=== PATIENT | male | born 1960 | race Caucasian/White ===

== ENCOUNTER 2016-12-19 01:42 | Emergency (ER) | payer OTHER ==
[~2016-12-19] VITALS: Ht 185.4 cm; Wt 94.8 kg
[~2016-12-19 01:42] MED LIST: IRBE-43 PO; SIMV40TA2 PO
[2016-12-19 01:50] VITALS: TEMP 37.7; Ht 185.4 cm; Wt 94.8 kg
[2016-12-19] MEDS ORDERED: SODIUM CHLORIDE 0.9% 1000ML 1,000 ML IV STA (02:58)
[2016-12-19] MEDS ORDERED: KETOROLAC TROMETHAMINE 30 MG/ML VIAL IV STA (02:58)
[2016-12-19] MEDS ORDERED: ACETAMINOPHEN 500 MG TAB PO STA (02:58)
[2016-12-19 03:04] LABS: BASO % 0.1 %; BASO ABS # 0.01 K/uL (0-0.2); COMPLETE YES; EOS % 0.5 %; HEMATOCRIT 40.8 % (42-52); IG% 0.4 %; LYMPH % 8.5 %; LYMPH ABS # 0.64 K/uL (1.2-3.4); MEAN CELL VOLUME 83.1 fL (80-100); MEAN CORPUSCULAR HEMOGLOBIN 29.5 pg (25-34); MEAN CORPUSCULAR HGB CONC 35.5 g/dl (32-36); MEAN PLATELET VOLUME 9.1 fL (7.4-10.4); MONO % 2.4 %; NEUT % 88.1 %; PLATELET COUNT 177 K/uL (130-400); RED BLOOD COUNT 4.91 M/uL (4.7-6.1); WHITE BLOOD COUNT 7.54 K/uL (4.8-10.8)
[2016-12-19 03:14] LABS: BUN/CREATININE RATIO 13.4 (10-20); CALCIUM 9.1 mg/dl (8.5-10.1); CREATININE 1.1 mg/dl (0.60-1.40); MAGNESIUM 1.7 mg/dl (1.8-2.4); POTASSIUM 3.6 mmol/L (3.5-5.1)
[2016-12-19 03:18] LABS: URINE APPEARANCE CLEAR (CLEAR); URINE BILIRUBIN NEG (NEG); URINE COLOR YELLOW; URINE NITRITE NEG (NEG); URINE PH 5.5 (4.5-7.5); URINE SPECIFIC GRAVITY 1.012 (1.000-1.030); UROBILINOGEN NEG (NEG); ZZUR CULT IF INDIC CLEAN CATCH NO
[2016-12-19 03:22] LABS: MANUAL MICROSCOPIC REQUIRED? NO; REVIEW REQ? NO
[2016-12-19] MEDS ORDERED: ALBUTEROL HFA 8 GM INHALER INH STA (05:51)
[2016-12-19] MEDS ORDERED: ZTHM250 PO (05:57)
--- NOTE | 2016-12-19 05:58 | EMERGENCY ROOM VISIT NOTE ---
History First contact with patient: 02:31 Chief Complaint: FEVER Stated Complaint: FEVER History of Present Illness The patient is a 56 year old male who presents to the Emergency Department by private vehicle for evaluation of his fever, upper respiration 20 symptoms, and cough. He reports that he has not felt well for the past month or so. This evening, he developed a fever of 102.7 at home. He reports having some mild nausea. He reports a mild headache. This is not the worst headache of his life. He reports diffuse muscle aches and pains. He has had a lingering cough the past 2 weeks. The patient rates his current discomfort as a 4/10. He is tried nothing [id number] for his symptoms. He did receive his flu shot this year. He denies any blurry vision, double vision, slurred speech, facial droop, unilateral weakness/numbness, chest pain, palpitations, shortness of breath, hemoptysis, vomiting, abdominal pain, hematochezia, melena, hematuria, or dysuria. Review of Systems A complete 10-point Review of Systems was discussed with the patient, with pertinent positives and negatives listed in the History of Present Illness. All remaining Review of Systems questions can be considered negative unless otherwise specified. Social History Smoking Status: Never Smoker Smokeless Tobacco Use: No Housing Status: lives with family Occupation Status: employed Current/Historical Medications Scheduled Aspirin (Aspirin Ec), 81 MG PO DAILY Azithromycin (Azithromycin), 1 TAB PO DAILY Fish Oil ([place]-3), 1 CAP PO DAILY Irbesartan-Hydrochlorothiazide (Avalide), 150 MG PO DAILY Multivitamin (Multivitamin), 1 TAB PO DAILY Simvastatin (Zocor), 40 MG PO QPM Allergies Coded Allergies: No Known Allergies (Unverified , 12/19/16) Physical Exam Vital Signs Date Time Temp Pulse Resp B/P Pulse Ox O2 Delivery O2 Flow Rate FiO2 12/19/16 06:19 78 16 127/77 98 12/19/16 05:32 75 16 127/71 97 Room Air 12/19/16 03:47 77 16 136/74 98 Room Air 12/19/16 01:50 37.7 121 18 133/76 92 Room Air Pain Rating (0-10): 4 Physical Exam VITAL SIGNS - Vital signs and nursing notes were reviewed. GENERAL - Well nourished, well developed 56-year-old male in no acute distress. Pt communicates well with provider and answers questions appropriately. SKIN - Without rash. HEAD - NC/AT with no obvious deformities. EYES - PERRL with EOMI bilaterally. Sclera without injection. Palpebral conjunctiva pink and moist. EARS - No deformities of external structures noted on gross examination bilaterally. No pain elicited with palpation of the tragus bilaterally. External auditory canals without discharge or otorrhea. Tympanic membranes pearly osborne without retraction or bulging. No fluid or purulent material visualized behind the TM. Handle of malleus, umbo, cone of light, pars tensa/ flaccid all easily visualized. NOSE - Midline and without cyanosis. No purulent drainage noted. Nasal mucosa without mucus discharge. MOUTH/OROPHARYNX - Without perioral cyanosis. Buccal mucosa pink and moist and without leukoplakia. Tongue midline with equal elevation of palate bilaterally. No tonsillar hypertrophy, erythema, or exudates noted. Good dentition noted. NECK - Neck with FROM. Supple to palpation. No lymphadenopathy noted. No nuchal rigidity. LUNGS - Chest wall symmetric without accessory muscle use, intercostals retractions, or central cyanosis. Normal vesicular breath sounds CTA B/L. No wheezes, rales, or rhonchi appreciated. CARDIAC - RRR with S1/S2. No murmur, rubs, or gallops appreciated. ABDOMEN - Abdominal contour flat without pulsations or visible masses. BS normoactive all four quadrants. No tenderness, palpable masses, hepatosplenomegaly, or ascites noted. Medical Decision & Procedures ER Provider Diagnostic Interpretation: Radiological imaging and reports were reviewed by myself. Radiologist's Interpretation as follows: CHEST ONE VIEW PORTABLE CLINICAL HISTORY: cough/fever COMPARISON STUDY: No previous studies for comparison. FINDINGS: The cardiac and mediastinal contours are normal. There is no evidence of focal pulmonary consolidation. There is no evidence of failure. No pleural effusions are visualized.[ Bibasilar opacities are felt to be atelectatic. IMPRESSION: Bibasilar opacities, likely atelectatic. No evidence of lobar consolidation Laboratory Results 12/19/16 02:05 Red Blood Count 4.91, Mean Corpuscular Volume 83.1, Mean Corpuscular Hemoglobin 29.5, Mean Corpuscular Hemoglobin Concent 35.5, Mean Platelet Volume 9.1, Neutrophils (%) (Auto) 88.1, Lymphocytes (%) (Auto) 8.5, Monocytes (%) (Auto) 2.4, Eosinophils (%) (Auto) 0.5, Basophils (%) (Auto) 0.1, Neutrophils # (Auto) 6.64, Lymphocytes # (Auto) 0.64, Monocytes # (Auto) 0.18, Eosinophils # (Auto) 0.04, Basophils # (Auto) 0.01 12/19/16 02:05 Test 12/19/16 02:05 12/19/16 03:00 12/19/16 03:40 White Blood Count 7.54 K/uL (4.8-10.8) Red Blood Count 4.91 M/uL (4.7-6.1) Hemoglobin 14.5 g/dL (14.0-18.0) Hematocrit 40.8 % (42-52) Mean Corpuscular Volume 83.1 fL (80-100) Mean Corpuscular Hemoglobin 29.5 pg (25-34) Mean Corpuscular Hemoglobin Concent 35.5 g/dl (32-36) Platelet Count 177 K/uL (130-400) Mean Platelet Volume 9.1 fL (7.4-10.4) Neutrophils (%) (Auto) 88.1 % Lymphocytes (%) (Auto) 8.5 % Monocytes (%) (Auto) 2.4 % Eosinophils (%) (Auto) 0.5 % Basophils (%) (Auto) 0.1 % Neutrophils # (Auto) 6.64 K/uL (1.4-6.5) Lymphocytes # (Auto) 0.64 K/uL (1.2-3.4) Monocytes # (Auto) 0.18 K/uL (0.11-0.59) Eosinophils # (Auto) 0.04 K/uL (0-0.5) Basophils # (Auto) 0.01 K/uL (0-0.2) RDW Standard Deviation 37.2 fL (36.4-46.3) RDW Coefficient of Variation 12.4 % (11.5-14.5) Immature Granulocyte % (Auto) 0.4 % Immature Granulocyte # (Auto) 0.03 K/uL (0.00-0.02) Anion Gap 10.0 mmol/L (3-11) Est Creatinine Clear Calc Drug Dose 84.7 ml/min Estimated GFR () 86.5 Estimated GFR (Non- 74.6 BUN/Creatinine Ratio 13.4 (10-20) Calcium Level 9.1 mg/dl (8.5-10.1) Magnesium Level 1.7 mg/dl (1.8-2.4) Total Bilirubin 0.7 mg/dl (0.2-1) Aspartate Amino Transf (AST/SGOT) 22 U/L (15-37) Alanine Aminotransferase (ALT/SGPT) 50 U/L (12-78) Alkaline Phosphatase 124 U/L (45-117) Total Protein 7.3 gm/dl (6.4-8.2) Albumin 3.7 gm/dl (3.4-5.0) Globulin 3.6 gm/dl (2.5-4.0) Albumin/Globulin Ratio 1.0 (0.9-2) Lipase 182 U/L (73-393) Urine Color YELLOW Urine Appearance CLEAR (CLEAR) Urine pH 5.5 (4.5-7.5) Urine Specific [place] 1.012 (1.000-1.030) Urine Protein NEG (NEG) Urine Glucose (UA) NEG (NEG) Urine Ketones NEG (NEG) Urine Occult Blood NEG (NEG) Urine Nitrite NEG (NEG) Urine Bilirubin NEG (NEG) Urine Urobilinogen NEG (NEG) Urine Leukocyte Esterase NEG (NEG) Influenza Type A Antigen Neg for Influ A (NEG) Influenza Type B Antigen Neg for Influ B (NEG) Medications Administered Medications (Trade) Dose Ordered Sig/Lynne Route Start Time Stop Time Status Last Admin Dose Admin Sodium Chloride (Nss 1000ml) 1,000 ml @ 999 mls/hr Q1H1M STAT IV 12/19/16 02:58 12/19/16 03:58 DC 12/19/16 03:37 999 MLS/HR Acetaminophen (Tylenol Tab) 1,000 mg NOW STAT PO 12/19/16 02:58 12/19/16 03:00 DC 12/19/16 03:37 1,000 MG Ketorolac Tromethamine (Toradol Inj) 30 mg NOW STAT IV 12/19/16 02:58 12/19/16 03:00 DC 12/19/16 03:38 30 MG Azithromycin (Zithromax Tab) 500 mg NOW ONCE PO 12/19/16 06:00 12/19/16 06:01 DC 12/19/16 06:10 500 MG Albuterol (Ventolin Hfa Inhaler) 2 puffs ONE STAT INH 12/19/16 05:51 12/19/16 05:53 DC 12/19/16 06:11 2 PUFFS ED Course Patient was seen and evaluated by myself. Labs were drawn, saline lock complains. The patient was hydrated with a 1000 mL normal saline bolus. He was treated with 1 g of Tylenol orally for fever. He received 30 mg Toradol intravenously for pain and fevers well. Chest x-ray was obtained. Influenza swab was obtained. Laboratory results demonstrate no acute leukocytosis, worrisome anemia, or bandemia. The patient has no significant electrolyte abnormalities. Influenza was negative. Chest x-ray demonstrates no significant findings. Patient was reevaluated and reports feeling much better at this time. The patient was educated on laboratory studies and imaging findings. The patient was started on azithromycin for his ongoing symptoms. He was provided an albuterol inhaler for home. The patient was encouraged to follow-up with his primary care provider from today's visit. He was educated on worrisome symptoms for return visit to the emergency department. Patient discharged home afebrile and in good condition. Medical Decision Given the patient's presentation and stated complaints, I did elect to perform the above-mentioned workup. The patient presents today with fever, bodyaches, and cough. His symptoms have been ongoing for the last 48 hours. His cough has been persistent for the last few weeks. His chest x-ray demonstrate no acute insult otherwise. He has no chest pain. Clinically, the patient appears well. He responded well to IV fluids and antipyretics. Clinically, the patient appears very well at this time. Patient has had a cough for the last few weeks and now has associated fever. Because of this, the patient was placed on azithromycin. He was provided an albuterol inhaler for home. He was encouraged to utilize [id number] medications for ongoing symptoms. He was educated on worrisome symptoms for return visit to the emergency department. Patient discharged home afebrile and in good condition. In the evaluation and treatment of this patient, the following differential diagnoses were considered: Influenza, pneumonia, PE, meningitis, encephalitis, strep, mono, ACS, amongst others. Impression Primary Impression: Flu-like symptoms Additional Impressions: Fever Cough Departure Information Dispostion Home / Self-Care Condition GOOD Prescriptions Azithromycin (Azithromycin) 250 Mg Tab 1 TAB PO DAILY for 4 Days, #4 TAB Prov: Osvaldo Aguilar PA-C 12/19/16 Referrals Madeleine Connelly C.R.N.P (PCP) Patient Instructions My [facility] Additional Instructions You have been seen in the emergency department today for your flulike symptoms, fever, and cough. You were prescribed Azithromycin to be taken as prescribed. This is an antibiotic. All antibiotics have the potential to cause diarrhea. Stop this medication and contact a medical provider if you were to develop any significant adverse side effects including: wheezing, shortness of breath, passing out, vomiting, or a diffuse rash. Always take antibiotics as directed and COMPLETE the ENTIRE course regardless of the improvement of your symptoms. Please use the albuterol inhaler 2 puffs every 4-6 hours for the next 3-4 days and then as needed for cough. For pain control, you can use the following [id number] medicines (if >12 yo): - Regular strength (325mg/tab) Tylenol (acetaminophen) 2 tabs every 4-6 hours as needed. Do not exceed 12 tablets in a 24 hour period. Avoid taking more than 4 grams (4000 mg) of Tylenol per day. This includes any other sources of acetaminophen you may take on a regular basis. - Regular strength (200 mg/tab) Advil (ibuprofen) 1-2 tabs every 4-6 hours as needed. Do not exceed a dose of 3200 mg per day. Return for any changing or worsening symptoms. Problem Qualifiers Additional Impressions: Fever Fever type: unspecified Qualified Codes: R50.9 - Fever, unspecified
[2016-12-19] MEDS ORDERED: AZITHROMYCIN 250 MG TAB PO ONE (06:00)
[2016-12-19 06:19] VITALS: BP 127/77; PULSE 78; O2SAT 98
--- NOTE | 2016-12-19 07:53 | DIAGNOSTIC IMAGING REPORT ---
CHEST ONE VIEW PORTABLE CLINICAL HISTORY: cough/fever COMPARISON STUDY: No previous studies for comparison. FINDINGS: The cardiac and mediastinal contours are normal. There is no evidence of focal pulmonary consolidation. There is no evidence of failure. No pleural effusions are visualized.[ Bibasilar opacities are felt to be atelectatic. IMPRESSION: Bibasilar opacities, likely atelectatic. No evidence of lobar consolidation Electronically signed by: Az Handy M.D. 12/19/2016 7:52 AM Dictated Date/Time: 12/19/2016 7:51 AM
[2017-03-15] MEDS ORDERED: OMEG10007 PO (10:07)
[2017-03-15] MEDS ORDERED: ASPI81TA28 PO (10:07)
[2017-03-15] MEDS ORDERED: MULT-506 PO (10:07)
== END 2016-12-19 06:20 | disposition home or self-care (01) ==
LOC: C.EDB 01:43
DX: R50.9 Fever, unspecified (principal); R05 Cough; Z79.82 Long term (current) use of aspirin; Z79.899 Other long term (current) drug therapy

== ENCOUNTER → 2017-03-11 | Outpatient (CLI) | payer OTHER ==
[~2017-03-11] MED LIST changes: +ACET-1256 PO; +ASPI-390 PO; +ASPI81TA28 PO; +ATOR-26 PO; +AZIT-57 PO; +DOXY100C PO; +FLUT0.15 NAE; +IRBE1TAB50 PO; +KETO10TA PO; +MULT-506 PO; +OMEG10007 PO; +OXYC1TAB3 PO
--- NOTE | 2017-03-11 12:16 | DIAGNOSTIC IMAGING REPORT ---
CHEST 2 VIEWS ROUTINE CLINICAL HISTORY: FEVER AND CHILLS COMPARISON STUDY: 12/19/2016 FINDINGS: The cardiac and mediastinal contours are normal. There is no evidence of focal pulmonary consolidation. There is no evidence of failure. No pleural effusions are visualized.[ IMPRESSION: No active disease in the chest. Electronically signed by: Az Handy M.D. 03/11/2017 12:14 PM Dictated Date/Time: 03/11/2017 12:14 PM
== END | disposition home or self-care (01) ==
LOC: C.LABPVFM 11:58
PROVIDERS: ATTEND Family Medicine
DX: R50.9 Fever, unspecified (principal)

== ENCOUNTER 2017-03-15 14:54 | Emergency (ER) | payer OTHER ==
[~2017-03-15] VITALS: Ht 180.3 cm; Wt 98.4 kg
[~2017-03-15 14:54] MED LIST changes: -ACET-1256 PO; -ASPI-390 PO; -ATOR-26 PO; -DOXY100C PO; -FLUT0.15 NAE; -IRBE1TAB50 PO; -KETO10TA PO; -OXYC1TAB3 PO
[2017-03-15 14:55] VITALS: TEMP 36.7; Ht 180.3 cm; Wt 98.4 kg
[2017-03-15] MEDS ORDERED: ONDANSETRON INJ 2 MG/ML 2 ML VIAL IV STA (15:19)
[2017-03-15] MEDS ORDERED: SODIUM CHLORIDE 0.9% 1000ML 1,000 ML IV STA ×2 (15:19→16:40)
[2017-03-15] MEDS ORDERED: KETOROLAC TROMETHAMINE 30 MG/ML VIAL IV STA (15:19)
[2017-03-15 15:25] LABS: BASO % 0.6 %; BASO ABS # 0.04 K/uL (0-0.2); COMPLETE YES; EOS % 0.8 %; HEMATOCRIT 40.3 % (42-52); IG% 0.1 %; LYMPH % 24.4 %; LYMPH ABS # 1.75 K/uL (1.2-3.4); MEAN CELL VOLUME 85.4 fL (80-100); MEAN CORPUSCULAR HEMOGLOBIN 29.9 pg (25-34); MEAN PLATELET VOLUME 8.8 fL (7.4-10.4); MONO % 9.9 %; NEUT % 64.2 %; PLATELET COUNT 190 K/uL (130-400); RED BLOOD COUNT 4.72 M/uL (4.7-6.1); WHITE BLOOD COUNT 7.18 K/uL (4.8-10.8)
--- NOTE | 2017-03-15 15:29 | DIAGNOSTIC IMAGING REPORT ---
CHEST ONE VIEW PORTABLE CLINICAL HISTORY: Chest pain and shortness of breath. COMPARISON STUDY: Chest radiograph March 11, 2017. FINDINGS: Lung volumes are normal. There is no pneumothorax or pleural effusion. No consolidation is identified. Pulmonary vascularity is normal. Cardiomediastinal silhouette is normal. IMPRESSION: No acute cardiopulmonary findings. Electronically signed by: Juan F Tong M.D. 03/15/2017 3:28 PM Dictated Date/Time: 03/15/2017 3:27 PM
[2017-03-15 15:42] LABS: BLOOD UREA NITROGEN 15 mg/dl (7-18); BUN/CREATININE RATIO 16.1 (10-20); CALCIUM 8.7 mg/dl (8.5-10.1); CARBON DIOXIDE 30 mmol/L (21-32); CHLORIDE 107 mmol/L (98-107); CREATININE 0.95 mg/dl (0.60-1.40); GLUCOSE 94 mg/dl (70-99); SODIUM 143 mmol/L (136-145)
[2017-03-15] MEDS ORDERED: IRBE1TAB50 PO (15:54)
[2017-03-15] MEDS ORDERED: ATOR-26 PO (15:54)
[2017-03-15] MEDS ORDERED: ACET-1256 PO (15:59)
[2017-03-15] MEDS ORDERED: KETO10TA PO (15:59)
[2017-03-15] MEDS ORDERED: FLUT0.15 NAE (16:05)
[2017-03-15] MEDS ORDERED: ASPI-390 PO (16:05)
[2017-03-15 16:27] LABS: LYME DISEASE AB IGG POS (NEG); LYME DISEASE AB IGM POS (NEG)
[2017-03-15] MEDS ORDERED: MoRPHine SULFATE 10 MG/ML CARP/VIAL IV STA (16:40)
[2017-03-15] MEDS ORDERED: OPTIRAY 320 IV PRN (16:45)
--- NOTE | 2017-03-15 17:19 | DIAGNOSTIC IMAGING REPORT ---
Study: CT angiography of the chest. HISTORY: Chest pain. Back pain. FINDINGS: Normal study. No evidence for aneurysm or dissection. Lungs are clear. IMPRESSION: Normal study Electronically signed by: Joseph Charles M.D. 03/15/2017 5:18 PM Dictated Date/Time: 03/15/2017 5:15 PM
[2017-03-15] MEDS ORDERED: DOXY100C PO (18:05)
[2017-03-15] MEDS ORDERED: OXYC1TAB3 PO (18:05)
[2017-03-15] MEDS ORDERED: DOXYCYCLINE HYCLATE 100 MG CAP PO ONE (18:15)
[2017-03-15 18:24] VITALS: BP 151/100; PULSE 50; O2SAT 96
--- NOTE | 2017-03-15 21:52 | EMERGENCY ROOM VISIT NOTE ---
History Report prepared by Zuleika: Bea Vines Under the Supervision of: Dr. Loi Gan D.O. First contact with patient: 15:03 Chief Complaint: CHEST PAIN Stated Complaint: SOB, PAIN IN R/S CHEST TO BACK History of Present Illness The patient is a 56 year old male who presents to the Emergency Room with complaints of worsening right chest pain starting 1 week ago. His symptoms started 1 week ago with a low grade fever, chills, headache, and chest pain. His symptoms worsened so 4 days ago he went to see his PCP who just told him to take Tylenol for his pain. The Tylenol did not help and his chest pain has worsened to the point where he cannot sleep at night. He has been sitting up to sleep. Yesterday he went to the ED and did a CT which found fluid in his right lung and around the heart. His pain is relieved by raising his arms above his head and [place]. His pain worsens with breathing. His symptoms continue to worsen and he now has SOB because when he takes a deep breath it hurts. The pain is in his right chest and wraps around his side and across his back. He denies any cough, rhinorrhea, sore throat, rash, swelling in the legs. He denies any history of smoking. He denies any trauma, recent surgery, long trips , or recent hospitalizations. He has not played golf recently. He denies any history of cancer, blood clots, or aortic problems. He had a tick bite 2 weeks ago. The tick was on for less than 36 hours and was engorged. He took doxycycline and there was no rash. He has a history of hypertension and high cholesterol. His records from [facility] show that he had a negative troponin. CT PE was suboptimal due to motion artifact. The aorta was normal and there was a small amount of fluid in the superior pericardial recess and trace right pleural effusion. Source of History: patient Onset: 1 week ago Position: chest (right) Quality: other (pain) Timing: worsening Modifying Factors (Worsening): breathing Modifying Factors (Relieving): other (raising arms above head, [place]) Associated Symptoms: + SOB, + chills, + headache, No cough, No rash, No sorethroat Note: Pt denies rhinorrhea, swelling in the legs. Review of Systems See HPI for pertinent positives & negatives. A total of 10 systems reviewed and were otherwise negative. Past Medical & Surgical Medical Problems: (1) High cholesterol (2) Hypertension Family History FH: gallbladder disease FH: heart disease Hypertension Social History Smoking Status: Never Smoker Marital Status: Housing Status: lives with family Occupation Status: employed Current/Historical Medications Scheduled Aspirin (Aspirin Ec), 81 MG PO DAILY Atorvastatin (Lipitor), 80 MG PO DAILY Doxycycline Hyclate (Vibramycin), 100 MG PO BID Fish Oil ([place]-3), 1 CAP PO DAILY Irbesartan (Irbesartan), 300 MG PO DAILY Multivitamin (Multivitamin), 1 TAB PO DAILY Scheduled PRN Acetaminophen (Tylenol), 1,000 MG PO Q6H PRN for Pain Xjjyhvm-Jhtxzkaiqemhh-Vzdswhws (Excedrin Migraine), 1 TAB PO UD PRN for Migraine Fluticasone Propionate (Nasal) (Flonase Allergy Relief), 2 SPRAYS TOMASZ DAILY PRN for Allergy Symptoms Oxycodone Immediate Rel Tab (Roxicodone Ir), 1-2 TAB PO Q4H PRN for Severe Pain Allergies Coded Allergies: Ketorolac (Verified Adverse Reaction, Intermediate, Headache, 03/15/17) 10 mg tablets Physical Exam Vital Signs Date Time Temp Pulse Resp B/P Pulse Ox O2 Delivery O2 Flow Rate FiO2 03/15/17 18:24 50 18 151/100 96 03/15/17 16:24 61 13 03/15/17 16:18 158/90 03/15/17 15:54 61 15 03/15/17 15:24 55 17 03/15/17 15:11 64 03/15/17 15:00 97 Room Air 03/15/17 14:55 36.7 62 18 161/97 97 Physical Exam GENERAL: sitting up in bed, no acute distress, nontoxic EYE EXAM: normal conjunctiva OROPHARYNX: no exudate, no erythema, lips, buccal mucosa, and tongue normal and mucous membranes are moist NECK: supple, no nuchal rigidity, no adenopathy, non-tender CHEST: acute reproducible tenderness over the 5th rib anteriorly tracking through mid axillary and posteriorly toward the medial scapula LUNGS: Clear to auscultation. Normal chest wall mechanics HEART: no murmurs, S1 normal and S2 normal Bedside ultrasound shows no pericardial effusion ABDOMEN: abdomen soft, non-tender, normo-active bowel sounds, no masses, no rebound or guarding. BACK: Back is symmetrical on inspection and there is no deformity, no midline tenderness, no CVA tenderness. SKIN: no rashes and no bruising UPPER EXTREMITIES: upper extremities are grossly normal. LOWER EXTREMITIES: No pitting edema. NEURO EXAM: Normal sensorium, cranial nerves II-XII grossly intact, normal speech, no gross weakness of arms, no gross weakness of legs. Medical Decision & Procedures ER Provider Diagnostic Interpretation: Xray results as stated below per my and the radiologist's interpretation. Radiology results as stated below per my review and the radiologist's interpretation: CHEST ONE VIEW PORTABLE CLINICAL HISTORY: Chest pain and shortness of breath. COMPARISON STUDY: Chest radiograph March 11, 2017. FINDINGS: Lung volumes are normal. There is no pneumothorax or pleural effusion. No consolidation is identified. Pulmonary vascularity is normal. Cardiomediastinal silhouette is normal. IMPRESSION: No acute cardiopulmonary findings. Electronically signed by: Juan F Tong M.D. 03/15/2017 3:28 PM Dictated Date/Time: 03/15/2017 3:27 PM Study: CT angiography of the chest. HISTORY: Chest pain. Back pain. FINDINGS: Normal study. No evidence for aneurysm or dissection. Lungs are clear. IMPRESSION: Normal study Electronically signed by: Joseph Charles M.D. 03/15/2017 5:18 PM Dictated Date/Time: 03/15/2017 5:15 PM Laboratory Results 03/15/17 15:00 Red Blood Count 4.72, Mean Corpuscular Volume 85.4, Mean Corpuscular Hemoglobin 29.9, Mean Corpuscular Hemoglobin Concent 35.0, Mean Platelet Volume 8.8, Neutrophils (%) (Auto) 64.2, Lymphocytes (%) (Auto) 24.4, Monocytes (%) (Auto) 9.9, Eosinophils (%) (Auto) 0.8, Basophils (%) (Auto) 0.6, Neutrophils # (Auto) 4.61, Lymphocytes # (Auto) 1.75, Monocytes # (Auto) 0.71, Eosinophils # (Auto) 0.06, Basophils # (Auto) 0.04 03/15/17 15:00 Test 03/15/17 15:00 White Blood Count 7.18 K/uL (4.8-10.8) Red Blood Count 4.72 M/uL (4.7-6.1) Hemoglobin 14.1 g/dL (14.0-18.0) Hematocrit 40.3 % (42-52) Mean Corpuscular Volume 85.4 fL (80-100) Mean Corpuscular Hemoglobin 29.9 pg (25-34) Mean Corpuscular Hemoglobin Concent 35.0 g/dl (32-36) Platelet Count 190 K/uL (130-400) Mean Platelet Volume 8.8 fL (7.4-10.4) Neutrophils (%) (Auto) 64.2 % Lymphocytes (%) (Auto) 24.4 % Monocytes (%) (Auto) 9.9 % Eosinophils (%) (Auto) 0.8 % Basophils (%) (Auto) 0.6 % Neutrophils # (Auto) 4.61 K/uL (1.4-6.5) Lymphocytes # (Auto) 1.75 K/uL (1.2-3.4) Monocytes # (Auto) 0.71 K/uL (0.11-0.59) Eosinophils # (Auto) 0.06 K/uL (0-0.5) Basophils # (Auto) 0.04 K/uL (0-0.2) RDW Standard Deviation 39.7 fL (36.4-46.3) RDW Coefficient of Variation 12.6 % (11.5-14.5) Immature Granulocyte % (Auto) 0.1 % Immature Granulocyte # (Auto) 0.01 K/uL (0.00-0.02) D-Dimer < 190 ug/L FEU (0-500) Anion Gap 6.0 mmol/L (3-11) Est Creatinine Clear Calc Drug Dose 103.8 ml/min Estimated GFR () 103.3 Estimated GFR (Non- 89.1 BUN/Creatinine Ratio 16.1 (10-20) Calcium Level 8.7 mg/dl (8.5-10.1) Total Creatine Kinase 84 U/L (39-308) Creatine Kinase MB < 0.5 ng/ml (0.5-3.6) Creatine Kinase MB Ratio (0-3.0) Troponin I < 0.015 ng/ml (0-0.045) Lyme Disease IgG Antibody POS (NEG) Laboratory results per my review. Medications Administered Medications (Trade) Dose Ordered Sig/Lynne Route Start Time Stop Time Status Last Admin Dose Admin Sodium Chloride (Nss 1000ml) 1,000 ml @ 999 mls/hr Q1H1M STAT IV 03/15/17 15:19 03/15/17 16:19 DC 03/15/17 15:21 999 MLS/HR Ketorolac Tromethamine (Toradol Inj) 30 mg NOW STAT IV 03/15/17 15:19 03/15/17 15:20 DC 03/15/17 15:22 30 MG Ondansetron HCl 4 mg 4 mg NOW STAT IV 03/15/17 15:19 03/15/17 15:20 DC 03/15/17 15:21 4 MG Sodium Chloride (Nss 1000ml) 1,000 ml @ 999 mls/hr Q1H1M STAT IV 03/15/17 16:40 03/15/17 17:40 DC 03/15/17 16:59 999 MLS/HR Morphine Sulfate (MoRPHine SULFATE INJ) 6 mg NOW STAT IV 03/15/17 16:40 03/15/17 16:43 DC 03/15/17 16:58 6 MG Doxycycline Hyclate (Vibramycin Cap) 100 mg ONE ONCE PO 03/15/17 18:15 03/15/17 18:16 DC 03/15/17 18:23 100 MG ECG Indication: chest pain Rate (beats per minute): 55 Rhythm: sinus bradycardia Findings: T-wave inversion (lead 3), other (incomplete RBBB, normal interval) ED Course ED COURSE: Vital signs were reviewed and showed hypertension. The patients medical record was reviewed The above diagnostic studies were performed and reviewed. ED treatments and interventions as stated above. 1506: The patient was evaluated in room A2. A complete history and physical examination was performed. 1519: Zofran Inj 4 mg IV, Toradol Inj 30 mg IV, NSS 1000 ml @ 999 mls/hr IV. 1630: I reevaluated the patient. I updated him on the results. 1640: Morphine Sulfate 6 mg IV, NSS 1000 ml @ 999 mls/hr IV. 1755: Upon reevaluation, the patient is resting comfortably. Bedside ultrasound reveals no pericardial effusion. I discussed my findings with the patient and he understands and agrees with the treatment plan. Based on the patients age, coexisting illnesses, exam and lab findings the decision to treat as an outpatient was made. The patient remained stable while under my care. The patient appeared well at the time of discharge. 181: Vibramycin Cap 100 mg PO. Medical Decision Differential diagnoses includes but is not limited to acute coronary syndrome, myocardial infarction, pericarditis, pulmonary embolus, aortic dissection, pneumonia, pneumothorax, musculoskeletal, shingles, esophageal. Patient is a 56-year-old male who presents the ER for a week's worth of right- sided chest pain. Initially started along his right anterior chest and has now come onto his back. He denies any trauma. Pain is clearly reproducible on palpation of his fifth throughout tracking anteriorly and wrapping around to his scaphoid. Pain is improved with lifting his arm over his head. CBC along with BMP and troponin was negative. Pain has been present for greater than 8 hours. D-dimer was negative. CT PE performed at outside hospital shows no PEs , normal aorta and no pneumonia. There is no rib fractures. Based on exam and history I do feel this is consistent with muscle skeletal chest pain. A dissection study was ordered which was completely unremarkable. Bedside ultrasound shows no pericardial effusion. Patient was given a dose of morphine and Toradol and had improvement of his pain. Patient was discharged to follow- up with his primary care doctor with muscle skeletal chest pain. On exam he had absolutely no abdominal tenderness and pain is in the T5 distribution consequently do not believe that this is abdominal related. This has been persistent and would not be zoster due to the duration. Discussed with Pt concerning signs and symptoms to watch out for. Pt was instructed to follow up with their PCP and discussed with the patient their option to return to the ED at anytime for persistent or worsening symptoms. The appropriate anticipatory guidance and out-patient management, including indications for return to the emergency department, were explained at length to the patient and understood. Impression Primary Impression: Musculoskeletal chest pain Additional Impression: Positive Lyme disease serology Scribe Attestation The scribe's documentation has been prepared under my direction and personally reviewed by me in its entirety. I confirm that the note above accurately reflects all work, treatment, procedures, and medical decision making performed by me. Departure Information Dispostion Home / Self-Care Prescriptions Doxycycline Hyclate (VIBRAMYCIN) 100 Mg Cap 100 MG PO BID for 10 Days, CAP Prov: Loi Gan, DO 03/15/17 Oxycodone Immediate Rel Tab (ROXICODONE IR) 5 Mg Tab 1-2 TAB PO Q4H Y for Severe Pain, #24 TAB Prov: Loi Gan Macho, DO 03/15/17 Referrals No Doctor, Assigned (PCP) Moraima Leslie M.D. Forms HOME CARE DOCUMENTATION FORM, IMPORTANT VISIT INFORMATION Patient Instructions Chest Pain - [facility], ED Contusion Vs Minor Fx Rib, My [facility] Additional Instructions Please follow up with your primary care doctor with in the next 24 hours. Any worsening of your symptoms, please return to the ED immediately. This includes fevers grade and 100.4, new or worsening pain, or confusion, or any other concerning signs or symptoms from your standpoint. Please check within 3-4 days for your confirmatory Lyme testing. Please take antibiotic as prescribed. You were given medications during this visit that will inhibit your ability to drive, operate machinery and work. Please do NOT drive, operate machinery or work for the next 12hrs. You were also given a prescription for a narcotic/Oxy IR. While taking this medication you should also not drive, operate machinery and or work. Problem Qualifiers
[2017-03-18 23:23] LABS: 18KDIGG BAND NONREACTIVE (NONREACTIVE); 23KDIGG BAND REACTIVE (NONREACTIVE); 23KDIGM BAND REACTIVE (NONREACTIVE); 28KDIGG BAND NONREACTIVE (NONREACTIVE); 30KDIGG BAND NONREACTIVE (NONREACTIVE); 39KDIGG BAND NONREACTIVE (NONREACTIVE); 39KDIGM BAND REACTIVE (NONREACTIVE); 41KDIGG BAND REACTIVE (NONREACTIVE); 41KDIGM BAND REACTIVE (NONREACTIVE); 45KDIGG BAND NONREACTIVE (NONREACTIVE); 58KDIGG BAND NONREACTIVE (NONREACTIVE); 66KDIGG BAND NONREACTIVE (NONREACTIVE); 93KDIGG BAND NONREACTIVE (NONREACTIVE)
== END 2017-03-15 18:25 | disposition home or self-care (01) ==
LOC: C.EDB 14:55 → C.EDA 18:25
DX: R07.89 Other chest pain (principal); A69.20 Lyme disease, unspecified; I10 Essential (primary) hypertension; E78.5 Hyperlipidemia, unspecified; Z79.82 Long term (current) use of aspirin; Z82.49 Family history of ischemic heart disease and other diseases of the circulatory system; R00.1 Bradycardia, unspecified; I45.10 Unspecified right bundle-branch block

== ENCOUNTER → 2017-03-24 | Outpatient (CLI) | payer OTHER ==
[~2017-03-24] MED LIST changes: +ACET-1256 PO; +ASPI-390 PO; +ATOR-26 PO; -AZIT-57 PO; +DOXY100C PO; +FLUT0.15 NAE; -IRBE-43 PO; +IRBE1TAB50 PO; +OXYC1TAB3 PO; -SIMV40TA2 PO
[2017-03-24 09:38] LABS: CALCIUM 8.5 mg/dl (8.5-10.1)
[2017-03-24 09:42] LABS: BLOOD UREA NITROGEN 13 mg/dl (7-18); BUN/CREATININE RATIO 15.6 (10-20); CARBON DIOXIDE 28 mmol/L (21-32); CHLORIDE 108 mmol/L (98-107); CHOLESTEROL 113 mg/dl (0-200); CREATININE 0.86 mg/dl (0.60-1.40); GLUCOSE 89 mg/dl (70-99); POTASSIUM 4.2 mmol/L (3.5-5.1); SODIUM 144 mmol/L (136-145); TRIGLYCERIDES 124 mg/dl (0-150); VERY LOW DENSITY LIPOPROT CALC 25 mg/dl
[2017-03-24 09:46] LABS: CHOLESTEROL/HDL RATIO 2.7; HDL CHOLESTEROL 42 mg/dl; LDL CHOLESTEROL CALCULATED 46 mg/dl
[2017-03-24 13:18] LABS: LYME DISEASE AB IGG POS (NEG); LYME DISEASE AB IGM POS (NEG)
[2017-03-27 10:48] LABS: 18KDIGG BAND NONREACTIVE (NONREACTIVE); 23KDIGG BAND REACTIVE (NONREACTIVE); 23KDIGM BAND REACTIVE (NONREACTIVE); 28KDIGG BAND NONREACTIVE (NONREACTIVE); 30KDIGG BAND NONREACTIVE (NONREACTIVE); 39KDIGG BAND NONREACTIVE (NONREACTIVE); 39KDIGM BAND REACTIVE (NONREACTIVE); 41KDIGG BAND REACTIVE (NONREACTIVE); 41KDIGM BAND REACTIVE (NONREACTIVE); 45KDIGG BAND REACTIVE (NONREACTIVE); 58KDIGG BAND NONREACTIVE (NONREACTIVE); 66KDIGG BAND NONREACTIVE (NONREACTIVE); 93KDIGG BAND NONREACTIVE (NONREACTIVE)
== END | disposition home or self-care (01) ==
LOC: C.LAB 07:18
PROVIDERS: ATTEND Family Medicine
DX: I10 Essential (primary) hypertension (principal); E78.5 Hyperlipidemia, unspecified; R59.0 Localized enlarged lymph nodes; W57.XXXA Bitten or stung by nonvenomous insect and other nonvenomous arthropods, initial encounter

== ENCOUNTER → 2017-03-25 | Outpatient (CLI) | payer OTHER ==
--- NOTE | 2017-03-25 07:51 | DIAGNOSTIC IMAGING REPORT ---
ABDOMINAL ULTRASOUND, RIGHT UPPER QUADRANT HISTORY: Chest wall pain. Abdominal distention.. COMPARISON: Chest CT March 15, 2017. FINDINGS: Several hepatic cysts are noted. There is also a 3 cm right renal cyst. Liver morphology is normal. There is no biliary ductal dilatation. There are no gallstones. The pancreas is unremarkable by sonography. There is no right hydronephrosis. IMPRESSION: 1. No gallstones or biliary ductal dilatation. 2. 3 cm right renal cyst and several small hepatic cysts. Electronically signed by: Juan F Tong M.D. 03/25/2017 7:50 AM Dictated Date/Time: 03/25/2017 7:48 AM
== END | disposition home or self-care (01) ==
LOC: C.ULTR 07:07
PROVIDERS: ATTEND Nurse Practitioner
DX: R07.89 Other chest pain (principal); R14.0 Abdominal distension (gaseous); N28.1 Cyst of kidney, acquired; K76.89 Other specified diseases of liver

== ENCOUNTER → 2017-11-08 | Outpatient (CLI) | payer OTHER ==
[2017-11-04 15:54] LABS: BASO % 0.5 %; BASO ABS # 0.03 K/uL (0-0.2); EOS % 2.3 %; EOS ABS # 0.14 K/uL (0-0.5); HEMOGLOBIN 15.6 g/dL (14.0-18.0); IG# 0.02 K/uL (0.00-0.02); LYMPH % 33.5 %; LYMPH ABS # 2.08 K/uL (1.2-3.4); MEAN CELL VOLUME 84.9 fL (80-100); MEAN CORPUSCULAR HEMOGLOBIN 30.1 pg (25-34); MEAN CORPUSCULAR HGB CONC 35.5 g/dl (32-36); MEAN PLATELET VOLUME 9.6 fL (7.4-10.4); MONO % 12.7 %; MONO ABS # 0.79 K/uL (0.11-0.59); NEUT % 50.7 %; NEUT ABS # 3.15 K/uL (1.4-6.5); PLATELET COUNT 172 K/uL (130-400); RED CELL DISTRIBUTION WIDTH CV 12.5 % (11.5-14.5); RED CELL DISTRIBUTION WIDTH SD 38.4 fL (36.4-46.3); WHITE BLOOD COUNT 6.21 K/uL (4.8-10.8)
[2017-11-04 16:12] LABS: BLOOD UREA NITROGEN 14 mg/dl (7-18); CALCIUM 8.7 mg/dl (8.5-10.1); CARBON DIOXIDE 32 mmol/L (21-32); CREATININE 0.97 mg/dl (0.60-1.40); GLUCOSE 99 mg/dl (70-99); POTASSIUM 3.8 mmol/L (3.5-5.1); SODIUM 139 mmol/L (136-145)
[~2017-11-08] MED LIST changes: -DOXY100C PO; -OXYC1TAB3 PO
--- NOTE | 2017-11-08 11:29 | DIAGNOSTIC IMAGING REPORT ---
MRI OF THE BRAIN WITHOUT IV CONTRAST CLINICAL HISTORY: Memory difficulty. Headache. History of concussions. COMPARISON STUDY: No priors. TECHNIQUE: MRI of the brain was performed utilizing various T1 and T2-weighted sequences in the axial, sagittal, and coronal planes. IV contrast was not administered for this examination. FINDINGS: Brain parenchyma: The brain parenchyma is normal in appearance. There is no hemorrhage or mass effect. There is no restricted diffusion to suggest acute ischemia. Coffey-white matter differentiation is preserved. No extra-axial fluid collection is seen. The cerebellar tonsils are normal in configuration. Ventricles, sulci, and cisterns: Normal in configuration. Pituitary and sella: Unremarkable. Intracranial vasculature: Normal flow voids are maintained at the skull base. Orbits: The bony orbits are grossly intact. Orbital contents are normal in appearance. Sinuses and mastoids: There is a small retention cyst in the right sphenoid sinus. The paranasal sinuses are otherwise clear. The mastoid air cells are well pneumatized. Calvarium: Unremarkable. Cervical cord: Partially visualized cervical spinal cord is normal in morphology and signal intensity. IMPRESSION: Normal unenhanced MRI of the brain. Electronically signed by: Milton Yu M.D. 11/08/2017 11:28 AM Dictated Date/Time: 11/08/2017 11:24 AM
== END | disposition home or self-care (01) ==
LOC: C.MRI 10:42
PROVIDERS: ATTEND Nurse Practitioner
DX: R41.3 Other amnesia (principal); R53.83 Other fatigue; I10 Essential (primary) hypertension; Z86.19 Personal history of other infectious and parasitic diseases; Z87.820 Personal history of traumatic brain injury